=== PATIENT | male | born 1945 | race Two or more races ===

== ENCOUNTER 2021-06-25 11:00 | Outpatient (CLI) | payer OTHER ==
[~2021-06-25 11:00] MED LIST: DILTIAZEM 24HR120 MG; INTESTINEX1 CAP PO; OSEL75CA PO; PRAVACHOL10 MG; TAMBOCOR50 MG; TUSSI PRES-B L120 M1 PO; XARELTO10 MG
== END 2021-06-25 11:08 | disposition home or self-care (01) ==
LOC: SONOGRAMA 11:00
PROVIDERS: ATTEND Pathology Anatomic Pathology & Clinical Pathology
DX: D34 Benign neoplasm of thyroid gland (principal); E04.8 Other specified nontoxic goiter